=== PATIENT | female | born 1940 | race Caucasian/White ===

== ENCOUNTER 2017-12-18 07:18 | Inpatient (IN) | payer OTHER ==
[2017-12-18] MEDS ORDERED: CITRATE DEXTROSE SOLN 500 ML BAG ONE (07:47)
[2017-12-18] MEDS ORDERED: BUPIVACAINE 0.25% 30 ML SDV ONE (07:47)
[2017-12-18] MEDS ORDERED: THROMBIN (BOVINE) 20,000 UNIT VIAL TP ONE (07:47)
[2017-12-18] MEDS ORDERED: BACITRACIN 50,000 UNITS/10 ML SYR IRR ONE (07:48)
[2017-12-18] MEDS ORDERED: CHLORHEXIDINE GLUC HIBICLENS 118 ML BTL TP ONE (07:49)
[2017-12-18] MEDS ORDERED: morphINE PF 5 MG/10 ML INJ IT ONE (07:50)
[2017-12-18] MEDS ORDERED: ceFAZolin 2 GM/SWFI 2 GM/20 ML SYR IVP ONE (07:50)
[2017-12-18] MEDS ORDERED: GABAPENTIN 300 MG CAP PO ONE (07:50)
[2017-12-18] MEDS ORDERED: ACETAMINOPHEN 500 MG TAB PO ONE (07:50)
[2017-12-18] MEDS ORDERED: LR 1,000 ML IV ONE (07:51)
[2017-12-18] MEDS ORDERED: MIDAZOLAM 2 MG/2 ML VIAL IVP ONE (08:58)
[2017-12-18] MEDS ORDERED: VANCOMYCIN HCL/NORMAL SALINE 250 ML IV ONE ×2 (08:59→21:30)
--- NOTE | 2017-12-18 09:07 | PDHPUP ---
History & Physical Update H&P update statement: This history and physical update is based on an assessment of the patient which was completed after admission or registration (within 24 hours), but prior to the surgery/procedure. H&P update: H&P reviewed & patient examined, no change in patient's condition since H&P completed
--- NOTE | 2017-12-18 09:13 | PDANEPAE ---
ANE History of Present Illness L4-S1 Tlif ANE Past Medical History - Cardiovascular History Hx Hypertension: Yes Hx Arrhythmias: No Hx Chest Pain: No Hx Coronary Artery / Peripheral Vascular Disease: No Hx CHF / Valvular Disease: No Hx Palpitations: No Cardiovascular History Comment: pcp monitors bp meds - Pulmonary History Hx COPD: No Hx Asthma/Reactive Airway Disease: Yes Hx Recent Upper Respiratory Infection: No Hx Oxygen in Use at Home: No Hx Sleep Apnea: No Sleep Apnea Screening Result - Last Documented: Negative Pulmonary History Comment: asthma- instructed pt to bring inhalers to hospital - Neurologic History Hx Cerebrovascular Accident: No Hx Seizures: No Hx Dementia: No Neurologic History Comment: hx of lumbar and cervical decompression. poss seizure/ syncope at dinner table a couple weeks ago- f/u with neurologist pt feels she was dehydrated - Endocrine History Hx Diabetes: No Hypothyroid: No Hyperthyroid: No Obesity: mild - Renal History Hx Renal Disorders: No - Liver History Hx Hepatic Disorders: No - Neurological & Psychiatric Hx Hx Neurological and Psychiatric Disorders: Yes Neurological / Psychiatric History Comment: anxiety. depression - Cancer History Hx Cancer: Yes Cancer History Comment: skin ca- basal cell - Congenital Disorder History Hx Congenital Disorders: No - GI History Hx Gastrointestinal Disorders: Yes Gastrointestinal History Comment: ibs. reflux. lactose intolerant - Other Health History Other Health History: bruises easily. rash left leg towards ankle currently- pt is treating with cream - Chronic Pain History Chronic Pain: Yes (lower back, left sciatca, down legs at times) - Surgical History Prior Surgeries: spinal injection. nathaniel. eye surgery. rtc repair x3. bilateral tka. decompression of lower back. decompression of neck ANE Review of Systems Review of Systems: - Exercise capacity METS (RN): 3 METS - Systems EENMT: Reports: blurred vision (Right eye) Cardiac: Reports: no symptoms Respiratory: Reports: no symptoms Gastrointestinal: Reports: no symptoms Genitourinary: Reports: incontinence Muscolosketal: Reports: no symptoms, neck pain Neurological: Reports: anxiety, depressed ANE Patient History - Allergies Allergies/Adverse Reactions: adhesive tape Allergy (Verified 12/18/17 08:14) Rash cephalexin [From Keflex] Allergy (Verified 12/18/17 08:14) Rash hydrocodone Allergy (Verified 12/18/17 08:14) Rash and a lot of itching Iodine and Iodide Containing Produc Allergy (Verified 12/18/17 08:14) Swelling/neck,face,throat lactose Allergy (Verified 12/18/17 08:14) morphine Allergy (Verified 12/18/17 08:14) PSYCHOSIS Penicillins Allergy (Verified 12/18/17 08:14) Rash shellfish derived Allergy (Verified 12/18/17 08:14) Swelling/neck,face,throat Sulfa (Sulfonamide Antibiotics) Allergy (Verified 12/18/17 08:14) Hives; Rash; Itch tramadol [From Ultram] Allergy (Verified 12/18/17 08:14) causes a lot of anxiety - Home Medications Home medications: home medication list seen and reviewed Home Medications: Albuterol [Ventolin Hfa Inhaler] 2 puffs IH Q6 PRN 11/26/17 [Last Taken 11/18/17 ] Budesonide [Rhinocort Allergy] 1 spray EACHNARE BID 11/26/17 [Last Taken 05:30] Cholecalciferol Vit D3 [Vitamin D3 (*)] 1,000 units PO DAILY 11/26/17 [Last Taken 12/11/17] Citalopram [CeleXA] 20 mg PO DAILY 11/26/17 [Last Taken 12/18/17] Diazepam [Valium 5 MG (*)] 2.5 mg PO HS PRN 11/26/17 [Last Taken 12/15/17] Fluticasone/Salmeterol [Advair Hfa 115-21 Mcg Inhaler] 1 gm IH BID 11/26/17 [ Last Taken 12/18/17 05:30] Herbals/Supplements -Info Only 1 ea PO DAILY 11/26/17 [Last Taken 12/11/17] Hyoscyamine Sulfate [Levsin, Hyomax-Sl 0.125 mg (*)] 0.125 mg PO DAILY PRN 11/26 [Last Taken 12/17/17] IMMUNE GLOBULIN,GAMMA (IGG) [GAMMAR-P I.V] 0 gm IV .[id number] 11/26/17 [Last Taken 12/16/17] Memantine HCl/Donepezil HCl [Namzaric 28 mg-10 mg Capsule] 1 each PO DAILY 11/26 [Last Taken 12/18/17 05:30] Multivitamins [Multivitamin (*)] 1 each PO DAILY 11/26/17 [Last Taken 12/11/17] Ondansetron Odt [Zofran Odt 4 mg (*)] 4 mg PO Q6 PRN 11/26/17 [Last Taken ] Pantoprazole Sodium [Protonix 40mg (*)] 40 mg PO DAILY 11/26/17 [Last Taken 05:30] Rizatriptan Benzoate [Maxalt] 10 mg PO PRN PRN 11/26/17 [Last Taken 12/18/16] amLODIPine BESYLATE [Norvasc 5 mg (*)] 5 mg PO DAILY 11/26/17 [Last Taken 05:30] diphenhydrAMINE [Benadryl 25 MG (*)] 25 mg PO DAILY PRN 11/26/17 [Last Taken 21:00] oxyCODONE/APAP 5/325 [Percocet 5/325 (*)] 1 tab PO Q6 PRN 11/26/17 [Last Taken 12/16/17] - NPO status NPO Since - Liquids (Date): 12/18/17 NPO Since - Liquids (Time): 06:00 NPO Since - Solids (Date): 12/17/17 NPO Since - Solids (Time): 19:00 - Anes Hx Anes Hx: no prior problems - Smoking Hx Smoking Status: Former smoker Marijuana use: No - Alcohol Use Alcohol Use: Other (Daily up to 4 wine glass/day) - Family Anes Hx Family Anes Hx: none Family Hx Anesthesia Complications: mother- nausea ANE Labs/Vital Signs - Vital Signs Blood Pressure: 141/80 Heart Rate: 76 Respiratory Rate: 16 O2 Sat (%): 95 Height: 167.64 cm Weight: 79.379 kg ANE Physical Exam - Airway Neck exam: decreased ROM Mallampati Score: Class 2 Mouth exam: small mouth opening - Pulmonary Pulmonary: no respiratory distress, no rales or rhonchi - Cardiovascular Cardiovascular: regular rate and rhythym, no murmur, rub, or gallop, other (No carotid murmur) - ASA Status ASA Status: III ANE Anesthesia Plan Anesthesia Plan: general endotracheal anesthesia Lines/Monitors: arterial line Specialized Airway: video laryngoscope
[2017-12-18] MEDS ORDERED: fentaNYL 250 MCG/5 ML INJ ONE (09:19)
[2017-12-18] MEDS ORDERED: PROPOFOL/EMULSION 500 MG/50 ML BOTTLE IV ONE ×2 (09:20)
[2017-12-18] MEDS ORDERED: MIDAZOLAM 2 MG/2 ML VIAL ONE (09:21)
[2017-12-18] MEDS ORDERED: LIDOCAINE 2% 5 ML SDV ONE (09:24)
[2017-12-18] MEDS ORDERED: ROCURONIUM 50 MG/5 ML VIAL ONE (09:27)
[2017-12-18] MEDS ORDERED: SUCCINYLCHOLINE CHLORIDE 200 MG/10 ML SYR IVP ONE (09:29)
[2017-12-18] MEDS ORDERED: PHENYLEPHRINE HCL 100 MCG/ML SYR ONE (09:30)
--- NOTE | 2017-12-18 09:34 | PDHPUP ---
History & Physical Update H&P update statement: This history and physical update is based on an assessment of the patient which was completed after admission or registration (within 24 hours), but prior to the surgery/procedure. H&P update: H&P reviewed & patient examined, no change in patient's condition since H&P completed (Patient seen and all questions answered and consents signed. Site marked.)
[2017-12-18] MEDS ORDERED: DEXAMETHASONE 4 MG/ML VIAL ONE (10:27)
[2017-12-18] MEDS ORDERED: ONDANSETRON 4 MG/2 ML VIAL ONE (10:27)
[2017-12-18] MEDS ORDERED: morphINE PF 5 MG/10 ML INJ ONE (11:16)
[2017-12-18] MEDS ORDERED: fentaNYL 100 MCG/2 ML INJ ONE ×3 (11:23→16:03)
[2017-12-18] MEDS ORDERED: PROPOFOL 200 MG/20 ML VIAL ONE ×4 (11:23→13:12)
[2017-12-18] MEDS ORDERED: VASOPRESSIN 20 UNIT/ML VIAL ONE (11:54)
[2017-12-18] MEDS ORDERED: Rizatriptan Benzoate [Maxalt] 10 MG PO PRN (12:46)
[2017-12-18] MEDS ORDERED: diphenhydrAMINE 25 MG CAP PO PRN (12:46)
[2017-12-18] MEDS ORDERED: HYOSCYAMINE SULFATE 0.125 MG TAB PO PRN (12:46)
[2017-12-18] MEDS ORDERED: ALBUTEROL 200 PUFFS/18 GM MDI IH PRN (12:46)
[2017-12-18] MEDS ORDERED: MAGNESIUM HYDROXIDE 30 ML UDCUP PO PRN (12:47)
[2017-12-18] MEDS ORDERED: POLYETHYLENE GLYCOL 3350 17 GM PKT PO PRN (12:47)
[2017-12-18] MEDS ORDERED: ONDANSETRON DISINTEGRATING 4 MG TAB PO PRN (12:47)
[2017-12-18] MEDS ORDERED: ONDANSETRON 4 MG/2 ML VIAL IVP PRN ×2 (12:47→14:34)
[2017-12-18] MEDS ORDERED: BISACODYL 10 MG SUPP PR PRN (12:47)
[2017-12-18] MEDS ORDERED: LACTULOSE 20 GM/30 ML UDCUP PO PRN (12:47)
[2017-12-18] MEDS ORDERED: NS W/ 20 KCl/L 1,000 ML IV SCH (13:00)
[2017-12-18] MEDS ORDERED: HYDROmorphONE/DILAUDID 2 MG/ML INJ ONE (13:21)
[2017-12-18] MEDS ORDERED: PETROLAT,WHT/MIN OIL/SOD CHL 3.5 GM OPHT.OINT ONE (13:56)
--- NOTE | 2017-12-18 14:21 | POSTOPPROG ---
Post Op Note Date of Operation: 12/18/17 Surgeon: Hillary Aguilar Brake Repairer Bus: Caden Aguilar PA-C Anesthesiologist: Arnulfo Anesthesia: GET(General Endotracheal) Pre-op Diagnosis: lumbar spondylolisthesis, stenosis, radiculopathy Post-op Diagnosis: same Indication: pain Procedure: redo L4-5 TLIF, redo L5-S1 TLIF, L4-S1 posterior fusion Findings: Please see dictation Inf/Abcess present in the surg proc area at time of surgery?: No Depth: Organ Space EBL: 100-500 Complications: none Drains: Marck Gay Specimen(s): none PA Addendum - Addendum .: S: Pt in bed in PACU, c/o back pain, dry mouth. O: Awake but groggy NAD VSS MAEx4 Motor 5/5 BUE/BLE +LT Incision dressed cdi Rousseau in PEMA x 1 A: 77 yo F s/p redo L4-5 TLIF, redo L5-S1 TLIF, L4-S1 posterior fusion P: PT/OT Brace when OOB Pain management TEDs, SCDs, Lovenox POD#1 Post op xrays pending DC rousseau in AM Call NS with any questions or concerns D/w Dr Fenton
[2017-12-18] MEDS ORDERED: fentaNYL 100 MCG/2 ML INJ IVP PRN (14:34)
[2017-12-18] MEDS ORDERED: HYDROmorphONE/DILAUDID 1 MG/ML INJ IVP PRN (14:34)
[2017-12-18] MEDS ORDERED: NALOXONE HCL 0.4 MG/ML INJ IVP PRN (14:34)
[2017-12-18] MEDS ORDERED: LR 500 ML IV PRN (14:34)
[2017-12-18] MEDS ORDERED: DIAZEPAM 10 MG/2 ML SYR ONE (14:34)
[2017-12-18] MEDS ORDERED: OXYCODONE/APAP 5/325 TAB PO PRN (14:34)
[2017-12-18] MEDS ORDERED: DIAZEPAM 10 MG/2 ML SYR IVP PRN (14:34)
--- NOTE | 2017-12-18 16:32 | CPEKG ---
Heart Rate: 69 RR Interval: 870 P-R Interval: 188 QRSD Interval: 86 QT Interval: 448 QTC Interval: 480 P [place]: 72 QRS [place]: 73 T Wave [place]: 65 EKG Severity - NORMAL ECG - EKG Impression: SINUS RHYTHM Electronically Signed By: Bulmaro Lee 21-Dec-2017 10:24:31
[2017-12-18] MEDS: METHOCARBAMOL 750 MG TAB PO PRN (18:32)
[2017-12-18] MEDS: ACETAMINOPHEN 500 MG TAB PO SCH ×2 (18:33→22:03)
[2017-12-18] MEDS: POLYETHYLENE GLYCOL 3350 17 GM PKT PO SCH ×2 (18:53→22:07)
[2017-12-18] MEDS: FAMOTIDINE 20 MG TAB PO SCH (20:14)
[2017-12-18] MEDS: oxyCODONE IR 5 MG TAB PO PRN (20:14)
[2017-12-18] MEDS: SENNOSIDES/DOCUSATE SODIUM TAB PO SCH (20:14)
[2017-12-18] MEDS: [UNRECOGNIZED DRUG - REMARK] EACHNARE SCH (20:17)
--- NOTE | 2017-12-18 21:48 | GOP ---
[f rep st] OPERATIVE REPORT DATE OF OPERATION: 12/18/2017 SURGEON: Bart Fenton MD BREAD ROOM HAND: KRISTYN Lance ANESTHESIA: General. PREOPERATIVE DIAGNOSIS: 1. L4-L5, L5-S1 lumbar spondylosis with left-sided lateral recess and foraminal stenosis. 2. Left lower extremity radiculopathy. 3. History of prior decompression L3 to S1. 4. Low back pain. 5. Treatment refractory to nonoperative intervention. 6. L5-S1 spondylolisthesis. POSTOPERATIVE DIAGNOSIS: 1. L4-L5, L5-S1 lumbar spondylosis with left-sided lateral recess and foraminal foraminal stenosis. 2. Left lower extremity radiculopathy. 3. History of prior decompression L3 to S1. 4. Low back pain. 5. Treatment refractory to nonoperative intervention. 6. L5-S1 spondylolisthesis. PROCEDURE PERFORMED: 1. Posterior arthrodesis with approach to L4, L5, S1. 2. Posterolateral fusion with bilateral pedicle screw placement at L4, L5, and S1 from the [employer] 4.75 system. 3. Re-do left-sided L4-L5 facetectomy, foraminotomy, nerve root decompression. 4. Re-do left-sided L5-S1 facetectomy, foraminotomy, nerve root decompression. 5. Left-sided L4-5 transforaminal lumbar interbody fusion with an 8 x 22 mm titanium coated Peek cage filled with morselized autograft. 6. Left-sided L5-S1 transforaminal lumbar interbody fusion with a 7 x 26 mm titanium coated Peek cage filled with morselized autograft. 7. Posterolateral fusion on the right between L4 and S1 with morselized autograft and allograft. 8. Use of intraoperative 3D Stealth navigation. 9. Use of intraoperative fluoroscopy, less than 1 hour physician time. 10. Use of neuromonitoring. 11. Use of the operating microscope. FINDINGS: per imaging SPECIMENS: None. ESTIMATED BLOOD LOSS: 150 mL. INDICATIONS: Patient is a 77-year-old woman who has undergone a prior decompression L3 through S1 several years ago. She did quite well but developed worsening low back pain with left lower extremity radiculopathy. She had evidence of a spondylolisthesis at L5-S1 as well as spondylosis L4-L5, L5- S1 with left-sided lateral recess and foraminal stenosis. After discussion of risks, benefits, and treatment alternatives after failing nonoperative interventions, we decided to proceed forth with surgery as described above. DESCRIPTION OF PROCEDURE: Patient was brought to the operating theater and underwent general endotracheal anesthesia without complications. She had Venodynes, YURI hose, and the appropriate lines placed by Anesthesia. The previous lumbar incision was identified and prepped and draped in the usual sterile surgical fashion. A time-out was completed per protocol and the patient received antibiotics within 1 hour of incision. Using lateral fluoroscopy and spinal needle, we then picked our entry point at the L4 through S1 levels. This was marked in the midline and incorporated her prior lumbar incision. The incision was taken with the scalpel blade, and then using monopolar taken down the midline through the lumbodorsal fascia. We identified the spinous process of L3. We then completed a subperiosteal dissection out laterally to avoid the midline between L4 and S1 and identified the facet joints of L4, L5, and S1. She had extremely degenerative changes of the facet joints diffusely and the normal anatomy was quite abnormal. We then attached the 3D Stealth navigation clamp to the spinous process of L3 and completed a 3D Stealth navigation spin. Using 3D Stealth navigation, we placed the gliding pilot instructor holes for the bilateral pedicle screws in L4, L5, and S1. All holes were manually palpated with no evidence of any cortical breaches. We tapped and placed 6.5 x 55 mm screws bilaterally in L4, right side at L5; 6.5 x 50 mm screw on the left at L5, and 6.5 x 45 mm screws bilaterally into S1. Another 3D Stealth navigation spin demonstrated good placement of the hardware. At this point the microscope was brought into the field to assist with microscopic dissection and to maintain illumination and magnification. Using the navigation system, we then were able to complete a re-do facetectomy and foraminotomy at the left L4-L5 and L5-S1 levels. This was extremely difficult and greater than 60% more challenging than the average surgery secondary the patient's bony overgrowth and foraminal stenosis. We identified the exiting L4 and L5 nerve roots which were completely skeletonized and decompressed. We then moved on to L5-S1 where we completed a left-sided L5-S1 diskectomy. We prepared the cartilaginous endplates and measured the interbody space. We placed a 7 x 26 mm titanium coated Peek cage filled with morselized autograft anteriorly toward the midline. We packed additional morcellized autograft into the disk space for the interbody fusion. We then moved up to L4-L5 where we completed a left-sided L4-5 diskectomy. We prepared the cartilaginous endplates and measured the interbody space. We placed an 8 x 22 mm titanium coated Peek cage filled with morselized autograft anteriorly and toward the midline. We packed additional morcellized autograft into the disk space for the interbody fusion. At this point, we decorticated the bone on the right side between L4 and S1. We irrigated the wound copiously with bacitracin irrigation. We placed 2 lordotic rods into the heads of the screws between L4 and S1 and secured them down with cap screws, which were then tightened per mill stenciler's setting. We injected preservative-free intrathecal narcotics. We placed morselized autograft and allograft in the right side between L4 and S1 for the posterolateral fusion. A drain was left in the subfascial space. We injected preservative-free intrathecal morphine. We had talked to the patient about her allergic reaction and she agreed and consented to undergoing Duramorph placement. We then closed the wound in multiple layers using Vicryl sutures in the deep layers and Dermabond for the skin. The patient's wounds were dressed sterilely. She was then flipped supine onto the transfer cart where she was awakened, extubated, and taken to the recovery room in stable condition. There were no complications and no noted changes on neuromonitoring throughout the procedure. COMPLICATIONS: None. /[id number]/MODL MTDD
[2017-12-18] MEDS: HYDROmorphONE/DILAUDID 1 MG/ML INJ IVP PRN (22:13)
[2017-12-18] MEDS: Fluticasone/Salmeterol [Advair Hfa 115-21 Mcg Inhaler] IH SCH (22:17)
[2017-12-19] MEDS: oxyCODONE IR 5 MG TAB PO PRN ×4 (00:04→13:55)
[2017-12-19] MEDS: METHOCARBAMOL 750 MG TAB PO PRN ×3 (00:05→12:51)
[2017-12-19] MEDS: HYDROmorphONE/DILAUDID 1 MG/ML INJ IVP PRN (01:17)
[2017-12-19] MEDS: ACETAMINOPHEN 500 MG TAB PO SCH ×3 (05:03→21:51)
[2017-12-19] MEDS: Fluticasone/Salmeterol [Advair Hfa 115-21 Mcg Inhaler] IH SCH ×2 (08:27→20:37)
[2017-12-19] MEDS: PANTOPRAZOLE SODIUM 40 MG TAB PO SCH (08:33)
[2017-12-19] MEDS: POLYETHYLENE GLYCOL 3350 17 GM PKT PO SCH ×3 (08:33→21:54)
[2017-12-19] MEDS: MULTIVITAMINS 1 EACH TAB PO SCH (08:33)
[2017-12-19] MEDS: CHOLECALCIFEROL VIT D3 1,000 UNITS TAB PO SCH (08:33)
[2017-12-19] MEDS: FAMOTIDINE 20 MG TAB PO SCH ×2 (08:34→21:52)
[2017-12-19] MEDS: amLODIPine BESYLATE 5 MG TAB PO SCH (08:34)
[2017-12-19] MEDS: CITALOPRAM 20 MG TAB PO SCH (08:34)
[2017-12-19] MEDS: Memantine Hcl/Donepezil Hcl [Namzaric 28 Mg-10 Mg Capsule] PO SCH (08:36)
[2017-12-19] MEDS: [UNRECOGNIZED DRUG - REMARK] EACHNARE SCH (08:37)
[2017-12-19] MEDS ORDERED: LACTASE 9000 UNIT PO PRN (09:08)
[2017-12-19] MEDS: SENNOSIDES/DOCUSATE SODIUM TAB PO SCH ×2 (09:10→21:52)
--- NOTE | 2017-12-19 09:10 | NEUSURGPN ---
Assessment/Plan: A: 77 yo F s/p redo L4-5 TLIF, redo L5-S1 TLIF, L4-S1 posterior fusion POD#1 P: Pt had adverse rxn to duramorph, now improved. Continue pain management with oxycodone/robaxin. PT/OT Brace when OOB TEDs, SCDs, Lovenox POD#1 Post op xrays pending PEMA drain - 340 out, continue for now. Silva is out Call NS with any questions or concerns D/w Dr Fenton Subjective: Pt resting in bed, states that she doesn't want her back pain to get out of control. Objective: AAOx3 NAD VSS MAEx4 Motor 5/5 BLE +LT Incision dressed JPx1 Urinary Catheter in Place: No Catheter Insertion Date: 12/18/17 - Physician Discussed Patient with : Eliceo Neurosurgery Physical Exam - Vitals, I&O, Labs I and O 12/18/17 12/19/17 12/20/17 05:59 05:59 05:59 Intake Total 4030 300 Output Total 590 595 Balance 3440 -295 Weight 79.3 kg Intake: Oral (ml) 1230 300 IV Intake (ml) 2800 Output: Urine (ml) 550 Catheter 550 Estimated Blood Loss (ml) 250 PEMA Drain Output (ml) 340 45 Right Back Marck Gay 340 45 Other: Number of Voids Catheter 1 Vital Signs Temp Pulse Resp BP Pulse Ox 36.6 C 73 16 137/74 H 93 12/19/17 08:00 12/19/17 08:33 12/19/17 08:33 12/19/17 08:34 12/19/17 08:33 Laboratory Results 12/18/17 16:33 ICD10 Worksheet Patient Problems: Problems Problem Status Onset Degenerative lumbar spinal stenosis Acute - ICD10 Problem Qualifiers (1) Degenerative lumbar spinal stenosis
[2017-12-19] MEDS ORDERED: LACTASE 3,000 UNIT TAB PO PRN (09:14)
[2017-12-19] MEDS: ONDANSETRON DISINTEGRATING 4 MG TAB PO PRN ×2 (09:59→21:53)
--- NOTE | 2017-12-19 11:02 | ASMTCMCOM ---
CM Note CM Note Notes: Pt is s/p surgery for lumbar stenosis and spondylolisthesis. Pt resides w who she is primary caregiver for. PT rec SNF and pt agreeable, requests referral to [facility] in [place]. Referral sent in [employer]. Date Signed: 12/19/2017 11:01 AM Electronically Signed By:KIRAN Dunlap
[2017-12-19] MEDS ORDERED: NS 500 ML IV ONE (14:30)
[2017-12-19] MEDS: ENOXAPARIN 40 MG/0.4 ML SYR SC SCH (18:17)
[2017-12-20] MEDS: METHOCARBAMOL 750 MG TAB PO PRN ×2 (00:07→19:12)
[2017-12-20] MEDS: [UNRECOGNIZED DRUG - REMARK] EACHNARE SCH ×3 (00:34→20:31)
[2017-12-20] MEDS: ACETAMINOPHEN 500 MG TAB PO SCH ×3 (05:27→22:37)
[2017-12-20] MEDS: ONDANSETRON DISINTEGRATING 4 MG TAB PO PRN ×3 (05:33→20:30)
[2017-12-20 07:13] LABS: PLATELET COUNT 185 10^3/uL (150-400)
[2017-12-20] MEDS: Fluticasone/Salmeterol [Advair Hfa 115-21 Mcg Inhaler] IH SCH ×2 (08:14→20:28)
[2017-12-20] MEDS: amLODIPine BESYLATE 5 MG TAB PO SCH (08:58)
[2017-12-20] MEDS: FAMOTIDINE 20 MG TAB PO SCH ×2 (08:59→20:28)
[2017-12-20] MEDS: CHOLECALCIFEROL VIT D3 1,000 UNITS TAB PO SCH (08:59)
[2017-12-20] MEDS: CITALOPRAM 20 MG TAB PO SCH (09:00)
[2017-12-20] MEDS: PANTOPRAZOLE SODIUM 40 MG TAB PO SCH (09:00)
[2017-12-20] MEDS: Memantine Hcl/Donepezil Hcl [Namzaric 28 Mg-10 Mg Capsule] PO SCH (09:01)
[2017-12-20] MEDS: ENOXAPARIN 40 MG/0.4 ML SYR SC SCH (09:02)
[2017-12-20] MEDS: POLYETHYLENE GLYCOL 3350 17 GM PKT PO SCH ×3 (09:04→20:33)
[2017-12-20] MEDS: MULTIVITAMINS 1 EACH TAB PO SCH (09:04)
[2017-12-20] MEDS: SENNOSIDES/DOCUSATE SODIUM TAB PO SCH ×2 (09:05→20:33)
--- NOTE | 2017-12-20 13:33 | NEUSURGPN ---
<KaylaJerri - Last Filed: 12/20/17 13:34> Assessment/Plan: Assessment/Plan: A: 77 yo F s/p redo L4-5 TLIF, redo L5-S1 TLIF, L4-S1 posterior fusion POD#2 P: Continue pain management with oxycodone/robaxin. PT/OT Brace when OOB TEDs, SCDs, Lovenox Post op xrays pending still- will get today PEMA drain - still with high output, will keep today most likely. If decreases output later today can remove Dispo- PT recommending rehab- will most likely not get approved until Friday. patient frustrated with this, but explained to her it is much harder to get rehab approved if discharged to home Encouraged OOB today as much as possible Call NS with any questions or concerns D/w Dr Fenton and seen by Dr. Fenton as well this morning Subjective: Pt resting in bed. Has not been out of bed yet today. Wants to go home or to rehab, frustrated overall this morning. Legs feel good and back pain tolerable. Objective: AAOx3 NAD VSS MAEx4 Motor 5/5 BLE +LT Incision dressed JPx1 - serosang in bulb Catheter Insertion Date: 12/18/17 - Physician Discussed Patient with : Eliceo Patient Seen by : Eliceo Neurosurgery Physical Exam - Vitals, I&O, Labs I and O 12/19/17 12/20/17 12/21/17 05:59 05:59 05:59 Intake Total 4030 550 Output Total 590 1285 Balance 3440 -735 Weight 79.3 kg Intake: Oral (ml) 1230 550 IV Intake (ml) 2800 Output: Urine (ml) 1000 Bedside Commode 450 Catheter 550 Estimated Blood Loss (ml) 250 PEMA Drain Output (ml) 340 285 Right Back Marck Gay 340 285 Other: Intake Quantity Yes Sufficient Number of Voids Bedside Commode 1 Catheter 1 Vital Signs Temp Pulse Resp BP Pulse Ox 36.8 C 72 16 144/81 H 93 12/20/17 11:40 12/20/17 11:40 12/20/17 11:40 12/20/17 11:40 12/20/17 11:40 Laboratory Results 12/20/17 07:00 12/18/17 16:33 ICD10 Worksheet Patient Problems: Problems Problem Status Onset Degenerative lumbar spinal stenosis Acute <Bart Fenton - Last Filed: 12/22/17 07:56> Assessment/Plan: I met with the patient and she is doing well overall with her pain control. Anticipate discharge when cleared by therapies. Neurosurgery Physical Exam - Vitals, I&O, Labs I and O 12/21/17 12/22/17 12/23/17 05:59 05:59 05:59 Intake Total 1050 1150 Output Total 345 25 Balance 705 1125 Intake: Oral (ml) 1050 1150 Output: Urine (ml) 300 Toilet 300 PEMA Drain Output (ml) 45 25 Right Back Marck Gay 45 25 Other: Intake Quantity Yes Yes Sufficient Number of Voids Bedside Commode 1 Toilet 3 1 Vital Signs Temp Pulse Resp BP Pulse Ox 37.2 C 90 18 122/72 H 94 12/21/17 22:58 12/21/17 22:58 12/21/17 22:58 12/21/17 22:58 12/21/17 22:58 Laboratory Results 12/20/17 07:00 12/18/17 16:33
[2017-12-20] MEDS ORDERED: SCOPOLAMINE HYDROBROMIDE 1 MG/3 DAYS PATCH TD SCH (15:15)
[2017-12-20] MEDS: diphenhydrAMINE 25 MG CAP PO PRN (22:30)
[2017-12-21] MEDS: METHOCARBAMOL 750 MG TAB PO PRN ×2 (06:13→21:26)
[2017-12-21] MEDS: ACETAMINOPHEN 500 MG TAB PO SCH ×3 (06:13→21:26)
[2017-12-21] MEDS: Fluticasone/Salmeterol [Advair Hfa 115-21 Mcg Inhaler] IH SCH ×2 (08:45→20:07)
[2017-12-21] MEDS: POLYETHYLENE GLYCOL 3350 17 GM PKT PO SCH ×3 (09:07→20:27)
[2017-12-21] MEDS: SENNOSIDES/DOCUSATE SODIUM TAB PO SCH ×2 (09:08→20:27)
[2017-12-21] MEDS: CITALOPRAM 20 MG TAB PO SCH (09:31)
[2017-12-21] MEDS: MULTIVITAMINS 1 EACH TAB PO SCH (09:31)
[2017-12-21] MEDS: PANTOPRAZOLE SODIUM 40 MG TAB PO SCH (09:31)
[2017-12-21] MEDS: oxyCODONE IR 5 MG TAB PO PRN ×2 (09:31→13:11)
[2017-12-21] MEDS: amLODIPine BESYLATE 5 MG TAB PO SCH (09:32)
[2017-12-21] MEDS: FAMOTIDINE 20 MG TAB PO SCH ×2 (09:33→20:12)
[2017-12-21] MEDS: CHOLECALCIFEROL VIT D3 1,000 UNITS TAB PO SCH (09:33)
[2017-12-21] MEDS: ENOXAPARIN 40 MG/0.4 ML SYR SC SCH (09:33)
[2017-12-21] MEDS: Memantine Hcl/Donepezil Hcl [Namzaric 28 Mg-10 Mg Capsule] PO SCH (09:34)
[2017-12-21] MEDS: [UNRECOGNIZED DRUG - REMARK] EACHNARE SCH ×2 (09:34→20:09)
--- NOTE | 2017-12-21 14:00 | NEUSURGPN ---
Assessment/Plan: Assessment/Plan: A: 77 yo F s/p redo L4-5 TLIF, redo L5-S1 TLIF, L4-S1 posterior fusion POD#3 P: Overall feeling much better today, improved nausea, eager to get up more today Continue pain management with oxycodone/robaxin. PT/OT Brace when OOB TEDs, SCDs, Lovenox Post op xrays show good hardware placement PEMA drain - will remove today Dispo- PT recommending rehab-most likely will go tomorrow 12/22 Call NS with any questions or concerns D/w Dr Fenton Subjective: Patient in good spirits this morning, feeling much better today with improved nausea. Eager to get up more today. Objective: AAOx3 NAD VSS MAEx4 Motor 5/5 BLE +LT Incision is c/d/i- dressed JPx1 - serosang in bulb Catheter Insertion Date: 12/18/17 - Physician Discussed Patient with Dr.: Fenton Neurosurgery Physical Exam - Vitals, I&O, Labs I and O 12/20/17 12/21/17 12/22/17 05:59 05:59 05:59 Intake Total 550 1050 Output Total 1285 345 25 Balance -735 705 -25 Intake: Oral (ml) 550 1050 Output: Urine (ml) 1000 300 Bedside Commode 450 Catheter 550 Toilet 300 PEMA Drain Output (ml) 285 45 25 Right Back Marck Gay 285 45 25 Other: Intake Quantity Yes Yes Sufficient Number of Voids Bedside Commode 1 1 Catheter 1 Toilet 3 1 Vital Signs Temp Pulse Resp BP Pulse Ox 36.6 C 70 20 128/75 H 92 12/21/17 08:23 12/21/17 08:46 12/21/17 08:46 12/21/17 09:32 12/21/17 08:46 Laboratory Results 12/20/17 07:00 12/18/17 16:33 ICD10 Worksheet Patient Problems: Problems Problem Status Onset Degenerative lumbar spinal stenosis Acute
[2017-12-21] MEDS: diphenhydrAMINE 25 MG CAP PO PRN (21:26)
[2017-12-22] MEDS: ACETAMINOPHEN 500 MG TAB PO SCH (05:51)
[2017-12-22] MEDS: METHOCARBAMOL 750 MG TAB PO PRN (05:51)
[2017-12-22] MEDS: oxyCODONE IR 5 MG TAB PO PRN ×2 (06:44→11:20)
--- NOTE | 2017-12-22 07:01 | NEUSURGPN ---
Date of Surgery: 12/18/17 Post Op Day: 4 Assessment/Plan: Assessment: 77 yo F s/p redo L4-5 TLIF, redo L5-S1 TLIF, L4-S1 posterior fusion POD #4 Plan: -Overall feeling better today, improved nausea. Pt states she has some improved leg pain but lower back is still the most bothersome -Continue pain management with Oxycodone/Robaxin. -PT/OT-CPM -Brace when OOB-fitting fine -TEDs, SCDs, Lovenox -Post op xrays show good hardware placement -PEMA drain-removed yesterday-site looks good -Dispo- PT recommending rehab-most likely will go today -Call NS with any questions or concerns -incision CDI -d/w Dr Fenton Subjective: Awake and alert. Pt with continued lower back pain. Pt states that the leg pain is better but still has some thigh and hamstring pain like prior to surgery Objective: AAOx3, NAD AVSS MAEx4 Motor 5/5 BLE +LT Incision is c/d/i- dressing changed PEMA site looks good Neuro Check Frequency: per routine Urinary Catheter in Place: No Catheter Insertion Date: 12/18/17 - Physician Discussed Patient with : Eliceo Neurosurgery Physical Exam - Vitals, I&O, Labs I and O 12/21/17 12/22/17 12/23/17 05:59 05:59 05:59 Intake Total 1050 1150 Output Total 345 25 Balance 705 1125 Intake: Oral (ml) 1050 1150 Output: Urine (ml) 300 Toilet 300 PEMA Drain Output (ml) 45 25 Right Back Marck Gay 45 25 Other: Intake Quantity Yes Yes Sufficient Number of Voids Bedside Commode 1 Toilet 3 1 Vital Signs Temp Pulse Resp BP Pulse Ox 37.2 C 90 18 122/72 H 94 12/21/17 22:58 12/21/17 22:58 12/21/17 22:58 12/21/17 22:58 12/21/17 22:58 Laboratory Results 12/20/17 07:00 12/18/17 16:33 ICD10 Worksheet Patient Problems: Problems Problem Status Onset Degenerative lumbar spinal stenosis Acute
--- NOTE | 2017-12-22 07:10 | PDIAF ---
- Diagnosis Diagnosis: s/p L spine fusion Code Status: Full Code - Medication Management Discharge Medications: Medications to Continue on Transfer Albuterol [Ventolin Hfa Inhaler] 2 puffs IH Q6 PRN 11/26/17 [Last Taken 11/18/17 ] Budesonide [Rhinocort Allergy] 1 spray EACHNARE BID 11/26/17 [Last Taken 05:30] Cholecalciferol Vit D3 [Vitamin D3 (*)] 1,000 units PO DAILY 11/26/17 [Last Taken 12/11/17] Citalopram [CeleXA 20 MG] 20 mg PO DAILY 11/26/17 [Last Taken 12/18/17] Diazepam [Valium 5 MG (*)] 2.5 mg PO HS PRN 11/26/17 [Last Taken 12/15/17] Fluticasone/Salmeterol [Advair Hfa 115-21 Mcg Inhaler] 1 gm IH BID 11/26/17 [ Last Taken 12/18/17 05:30] Herbals/Supplements -Info Only 1 ea PO DAILY 11/26/17 [Last Taken 12/11/17] Hyoscyamine Sulfate [Levsin, Hyomax-Sl 0.125 mg (*)] 0.125 mg PO DAILY PRN 11/26 [Last Taken 12/17/17] IMMUNE GLOBULIN,GAMMA (IGG) [GAMMAR-P I.V] 0 gm IV .D6QNVHT 11/26/17 [Last Taken 12/16/17] Memantine HCl/Donepezil HCl [Namzaric 28 mg-10 mg Capsule] 1 each PO DAILY 11/26 [Last Taken 12/18/17 05:30] Multivitamins [Multivitamin (*)] 1 each PO DAILY 11/26/17 [Last Taken 12/11/17] Ondansetron Odt [Zofran Odt 4 mg (*)] 4 mg PO Q6 PRN 11/26/17 [Last Taken ] Pantoprazole Sodium [Protonix 40mg (*)] 40 mg PO DAILY 11/26/17 [Last Taken 05:30] Rizatriptan Benzoate [Maxalt] 10 mg PO PRN PRN 11/26/17 [Last Taken 12/18/16] amLODIPine BESYLATE [Norvasc 5 mg (*)] 5 mg PO DAILY 11/26/17 [Last Taken 05:30] diphenhydrAMINE [Benadryl 25 MG (*)] 25 mg PO DAILY PRN 11/26/17 [Last Taken 21:00] Lactase [Lactaid Fast Act] 9,000 unit PO PRN PRN 12/18/17 [Last Taken Unknown] Acetaminophen [Tylenol ES 500 mg (*)] 1,000 mg PO Q8HRS tab 12/22/17 [Last Taken Unknown] Enoxaparin [Lovenox 40 MG (*)] 40 mg SC DAILY #7 syr 12/22/17 [Last Taken Unknown] Methocarbamol [Robaxin 750 mg (*)] 750 mg PO QID PRN #60 tab 12/22/17 [Last Taken Unknown] Patch Removal 1 ea TD Q72H patch 12/22/17 [Last Taken Unknown] Sennosides/Docusate Sodium [Senokot-S] 1 - 2 tab PO BID #30 tab 12/22/17 [Last Taken Unknown] oxyCODONE IR [Oxycodone Ir (*)] 5 - 10 mg PO Q4HRS PRN #90 tab 12/22/17 [Last Taken Unknown] Correction Antibiotics: none Discharge Medications: Refer to the Discharge Home Medication list for PRN reason. - Orders Services needed: Registered Nurse, Certified Tax Processor, Master Balance Clerk , Physical Therapy, Occupational Therapy Oxygen: to keep O2 sat above 90% Diet Recommendation: no restrictions on diet Diet Texture: Regular Texture Diet Tube feeding: n/a Weigh Patient: weekly Silva: Not applicable Wound Care Instructions: keep clean and dry. no abx ointment needed - Follow Up Care Current Providers and Referrals: AISLINN BERMUDEZ [Other] Bart Fenton MD [Medical Doctor] - (follow up in 2-3 weeks)
[2017-12-22] MEDS: POLYETHYLENE GLYCOL 3350 17 GM PKT PO SCH ×2 (07:34→09:44)
[2017-12-22] MEDS: SENNOSIDES/DOCUSATE SODIUM TAB PO SCH ×2 (07:35→09:43)
[2017-12-22 08:21] VITALS: BP 132/81; PULSE 69; RESP 16; TEMP 98.6; O2SAT 90
[2017-12-22] MEDS: Fluticasone/Salmeterol [Advair Hfa 115-21 Mcg Inhaler] IH SCH (09:32)
[2017-12-22] MEDS: MULTIVITAMINS 1 EACH TAB PO SCH (09:34)
[2017-12-22] MEDS: PANTOPRAZOLE SODIUM 40 MG TAB PO SCH (09:34)
[2017-12-22] MEDS: CHOLECALCIFEROL VIT D3 1,000 UNITS TAB PO SCH (09:34)
[2017-12-22] MEDS: FAMOTIDINE 20 MG TAB PO SCH (09:34)
[2017-12-22] MEDS: amLODIPine BESYLATE 5 MG TAB PO SCH (09:34)
[2017-12-22] MEDS: CITALOPRAM 20 MG TAB PO SCH (09:34)
[2017-12-22] MEDS: ENOXAPARIN 40 MG/0.4 ML SYR SC SCH (09:35)
[2017-12-22] MEDS: [UNRECOGNIZED DRUG - REMARK] EACHNARE SCH (09:36)
[2017-12-22] MEDS: Memantine Hcl/Donepezil Hcl [Namzaric 28 Mg-10 Mg Capsule] PO SCH (09:44)
--- NOTE | 2017-12-23 08:33 | ASDISCHSUM ---
Discharge Information Plan Status:SNF Medically Cleared to Leave: Discharge Date:12/22/2017 12:11 PM D/C Disposition:Retirement Facility [facility] D/C Disposition:Other Rehab, Not [place] Projected Discharge Date:12/21/2017 11:00 AM Transportation at D/C:Family Discharge Delay Reason: Follow-Up Date:12/21/2017 11:00 AM Discharge Slot: Final Diagnosis: Placement Information Referral Type:*Senior Living/SNF Referral ID:[id number] Provider Name:[facility] Address 1:[address] Phone Number: Address 2: Fax Number: City:[place] Selection Factors: State:[place] Patient Contact Information Contact Name:ENA Relationship:Daughter Address: Work Phone: City: [facility] Phone: [facility] Code: Email: Financial Information Financial Class: Primary Plan Desc:MEDICARE INPATIENT Primary Plan Number:[id number] Secondary Plan Desc:[facility] Secondary Plan Number:[id number] Assessment Information [facility] CM Progress Note CM Note CM Note Notes: Pt is s/p surgery for lumbar stenosis and spondylolisthesis. Pt resides w who she is primary caregiver for. PT rec SNF and pt agreeable, requests referral to [facility] in [place]. [facility] Date Signed: 12/19/2017 11:01 AM Electronically Signed By:KIRAN Dunlap Case Management Discharge Plan Note Case Management Discharge Discharge Order Complete? Answers: Yes Patient to Obtain Answers: Other Notes: [facility] Medications & Rehab Transportation Arranged Answers: Family/Friends Transport will Pick (Date 12/22/2017 12:00 PM & Time) Family Notified Answers: No Notes: Pt to notify family Discharge Comments Notes: Dc order received. Spoke with Kateryna ([phone]) [facility]; confirmed bed is available for pt today. Pt's discharge orders faxed ([phone]); confirmed received. Met with pt & RN to discuss; pt agreeable to dc poc. Pt's & grandson will be transporting pt. No other needs at this time. Date Signed: 12/22/2017 10:03 AM Electronically Signed By:Anjali Monaco RN Intervention Information Intervention Type:*IM-Signed Date of Service:12/22/2017 09:26 AM Patient Type:Inpatient Staff Member:Fabiana Linares Hours: Discipline: Severity: Comment:
[2017-12-23] MEDS ORDERED: PATCH REMOVAL 1 EA PATCH TD SCH (15:02)
== END 2017-12-22 12:11 | DRG 460 ==
LOC: F3N 07:18
PROVIDERS: ADMIT Neurological Surgery; ATTEND Neurological Surgery
PROC: 0SB40ZZ Excision of Lumbosacral Disc, Open Approach (ICD-10-PCS; principal; 2017-12-18 09:30)
PROC: 0SB20ZZ Excision of Lumbar Vertebral Disc, Open Approach (ICD-10-PCS; principal; 2017-12-18 09:30)
PROC: 0SG30AJ Fusion of Lumbosacral Joint with Interbody Fusion Device, Posterior Approach, Anterior Column, Open Approach (ICD-10-PCS; principal; 2017-12-18 09:30)
PROC: 0SG00AJ Fusion of Lumbar Vertebral Joint with Interbody Fusion Device, Posterior Approach, Anterior Column, Open Approach (ICD-10-PCS; principal; 2017-12-18 09:30)
PROC: 01NB0ZZ Release Lumbar Nerve, Open Approach (ICD-10-PCS; principal; 2017-12-18 09:30)
DX: M43.17 Spondylolisthesis, lumbosacral region (principal); M47.26 Other spondylosis with radiculopathy, lumbar region; M47.27 Other spondylosis with radiculopathy, lumbosacral region; M81.0 Age-related osteoporosis without current pathological fracture; E78.5 Hyperlipidemia, unspecified
CPT/HCPCS: 97116-GP; 97161-GP; 97165-GO; 97530-GO; 97530-GP; 97535-GO; C1713; G8978-GP-CK; G8979-GP-CI; G8987-GO-CJ; G8988-GO-CI; J0171; J0330; J1100; J1170; J1650; J2250; J2274; J2370; J2405; J2704; J3010; J3370; J7060